=== PATIENT | male | born 1955 | race Asian ===

== ENCOUNTER 2021-10-10 15:27 | Inpatient (IN) | payer MEDICAID, OTHER ==
[~2021-10-10] VITALS: Ht 165.1 cm; Wt 73.6 kg
[2021-10-10 17:22] LABS: BASOPHILS % 0.8 % (0.0-2.0); EOSINOPHILS % 0.8 % (0.0-5.0); HEMATOCRIT. 38.5 % (42.0-52.0); HEMOGLOBIN. 13.3 g/dL (14.0-18.0); LYMPHOCYTES % 14.2 % (20.0-50.0); MEAN CORPUSCULAR HEMOGLOBIN 32.2 pg (28.0-32.0); MEAN PLATELET VOLUME 5.7 fl (7.4-10.4); MONOCYTES % 7.7 % (2.0-8.0); NEUTROPHILS % 76.5 % (40.0-76.0); PLATELET 542 x1000/uL (130-400); RED BLOOD CELL COUNT 4.14 mill/uL (4.7-6.1); RED CELL DISTRIBUTION WIDTH 12.8 % (11.6-14.6)
[2021-10-10 17:30] LABS: CHLORIDE 106 mEq/L (98-107)
[2021-10-10] MEDS ORDERED: AZITHROMYCIN 500 MG in DEXT 5% WATER 250 ML IV SCH (18:30)
[2021-10-10] MEDS ORDERED: CEFTRIAXONE 1 G PREMIX 50 ML IV ONE (18:30)
[2021-10-10] MEDS ORDERED: ONDANSETRON HCL 4MG/2ML INJ IV PRN (18:45)
[2021-10-10] MEDS ORDERED: CLONIDINE 0.1MG TABLET PO PRN (18:45)
[2021-10-10] MEDS ORDERED: DOCUSATE SODIUM 100MG CAPSULE PO PRN (18:45)
[2021-10-10] MEDS ORDERED: ACETAMINOPHEN 325MG TABLET PO PRN (18:45)
[2021-10-10] MEDS ORDERED: AZITHROMYCIN 500MG/250ML 250 ML IV NR (20:30)
[2021-10-10] MEDS ORDERED: AZITHROMYCIN 500MG/250ML 250 ML IV SCH (22:15)
[2021-10-10] MEDS ORDERED: CEFTRIAXONE 1 G PREMIX 50 ML IV SCH (22:15)
[2021-10-11 11:56] VITALS: BP 128/72
[2021-10-11 11:57] VITALS: BP 128/72
[2021-10-11 16:00] VITALS: BP 116/69
[2021-10-11] MEDS ORDERED: CEFTRIAXONE 1 G PREMIX 50 ML IV SCH (18:45)
[2021-10-11 20:00] VITALS: BP 98/66
[2021-10-11] MEDS ORDERED: AZITHROMYCIN 500MG/250ML 250 ML IV SCH (20:30)
[2021-10-11] MEDS ORDERED: CEFTRIAXONE 1,000 MG in DEXTROSE 5% WATER 50 ML IV SCH (21:00)
[2021-10-11] MEDS ORDERED: AZITHROMYCIN 500 MG in DEXT 5% WATER 250 ML IV SCH (21:00)
[2021-10-11] MEDS: CEFTRIAXONE 1,000 MG in DEXTROSE 5% WATER 50 ML IV SCH (22:01)
[2021-10-12] VITALS: BP 117/77
[2021-10-12 04:00] VITALS: BP 113/68
[2021-10-12 06:34] LABS: BASOPHILS % 0.8 % (0.0-2.0); EOSINOPHILS % 4.4 % (0.0-5.0); HEMOGLOBIN. 12.4 g/dL (14.0-18.0); LYMPHOCYTES % 22.6 % (20.0-50.0); MEAN CORPUSCULAR HEMOGLOBIN 32.2 pg (28.0-32.0); MEAN CORPUSCULAR VOLUME 93.2 fL (80.0-94.0); MONOCYTES % 10.6 % (2.0-8.0); NEUTROPHILS % 61.6 % (40.0-76.0); PLATELET 523 x1000/uL (130-400); RED BLOOD CELL COUNT 3.86 mill/uL (4.7-6.1); RED CELL DISTRIBUTION WIDTH 13.1 % (11.6-14.6)
[2021-10-12 06:38] LABS: CHLORIDE 108 mEq/L (98-107)
[2021-10-12 08:00] VITALS: BP 121/69
[2021-10-12 12:00] VITALS: BP 116/68
[2021-10-12] MEDS ORDERED: ALBUTEROL 6.7GM HFA INHALER ORI PRN (14:00)
[2021-10-12 16:00] VITALS: BP 127/71
[2021-10-12 20:00] VITALS: BP 121/69
[2021-10-12] MEDS: AZITHROMYCIN 500 MG TABLET PO SCH (21:33)
[2021-10-12] MEDS: CEFTRIAXONE 1,000 MG in DEXTROSE 5% WATER 50 ML IV SCH (21:33)
[2021-10-13] VITALS (7 sets, daily range): BP systolic 92–129; BP diastolic 50–76
[2021-10-13] MEDS: GUAIFENESIN 200MG/10ML SUGAR FREE UDC PO PRN (20:30)
[2021-10-13] MEDS: AZITHROMYCIN 500 MG TABLET PO SCH (20:31)
[2021-10-13] MEDS: CEFTRIAXONE 1,000 MG in DEXTROSE 5% WATER 50 ML IV SCH (20:31)
[2021-10-14] VITALS (8 sets, daily range): BP systolic 80–126; BP diastolic 47–66
[2021-10-14 08:08] LABS: HIV SCREEN 4G Non Reactive (Non Reactive)
[2021-10-14] MEDS: CEFTRIAXONE 1,000 MG in DEXTROSE 5% WATER 50 ML IV SCH (20:36)
[2021-10-14] MEDS: GUAIFENESIN 200MG/10ML SUGAR FREE UDC PO PRN (22:49)
[2021-10-14] MEDS: AZITHROMYCIN 500 MG TABLET PO SCH (22:49)
[2021-10-15] VITALS (7 sets, daily range): BP systolic 73–140; BP diastolic 43–77
[2021-10-15] MEDS ORDERED: PNEUMOCOCCAL 23-VAL P-SAC VAC 0.5 ML IM ONE (12:45)
[2021-10-16 09:06] LABS: AFB SPECIMEN PROCESSING Direct Inoculation (.)
[2021-10-16 09:06] LABS: AFB SPECIMEN PROCESSING Direct Inoculation (.)
== END 2021-10-15 15:22 | disposition home or self-care (01) | DRG 139 ==
LOC: ER 15:27 → MICUSO 18:30 → EDBEDREQ 18:33 → EDBEDREQTM 18:33 → 5EST 10-11 10:13
PROVIDERS: ADMIT Internal Medicine; ATTEND Internal Medicine
DX: J18.9 Pneumonia, unspecified organism (principal); E44.1 Mild protein-calorie malnutrition; D64.9 Anemia, unspecified; D75.839 Thrombocytosis, unspecified; Z22.7 Latent tuberculosis; Z68.27 Body mass index [BMI] 27.0-27.9, adult; R05.3 Chronic cough
CPT/HCPCS: 36415; 71045; 80048; 80053; 84145; 85025; 87116; 87389; 87426; 87556; 90732; 93005; 99285; J0456; J0696; J7040; J7060